=== PATIENT | male | born 1970 | race Caucasian/White ===

== ENCOUNTER 2017-10-26 12:15 | Emergency (ER) | payer BC, OTHER ==
--- NOTE | 2017-10-26 12:40 | PDOC ---
History of Present Illness <John Ulloa - Last Filed: 10/26/17 16:47> - History of Present Illness Initial Comments: 10/26/17 13:07 47-year-old male with a history of hypothyroidism, hyperlipidemia presents after exposure at work. The patient works for the sanitation department, and reports that he was sprayed by an unknown fluid into his eyes and into his mouth when he was behind the sanitation truck. This occurred at 9am. He reports that it smelled like urine and thus he became concerned that he may have been exposed to a disease. He was in his usual state of health, denies fevers, chills , chest pain, shortness of breath, abdominal pain, nausea, vomiting, diarrhea, focal weakness or numbness. He does not recall whether he is vaccinated against hepatitis B. He reports receiving a flu shot recently. He does not recall his last tetanus shot. PMD: Dr. Minaya <Diomedes Escobar - Last Filed: 10/26/17 22:00> - General Chief Complaint: Non EmpBld/Body Flud Exposure Stated Complaint: EXPOSURE TO BODY FLUID Time Seen by Provider: 10/26/17 12:39 Past History <John Ulloa - Last Filed: 10/26/17 16:47> - Past Medical History Anemia: No Asthma: No Cancer: No Cardiac Disorders: No CVA: No COPD: No CHF: No Dementia: No Diabetes: No GI Disorders: No Disorders: Yes (ENLARGED PROSTATE) HTN: No Hypercholesterolemia: Yes Liver Disease: No Seizures: No Thyroid Disease: Yes - Surgical History Abdominal Surgery: Yes (HERNIA SURGERY X2) Appendectomy: Yes Cardiac Surgery: No Cholecystectomy: No Lung Surgery: No Neurologic Surgery: No Orthopedic Surgery: Yes (LEFT KNEE,ANKLE AND SHOULDER SX) - Immunization History Td Vaccination: No - Suicide/Smoking/Psychosocial Hx Smoking Status: No Smoking History: Never smoked Have you smoked in the past 12 months: No Number of Cigarettes Smoked Daily: 60 If you are a former smoker, when did you quit?: 15 YRS AGO Hx Alcohol Use: No Drug/Substance Use Hx: No Substance Use Type: None Hx Substance Use Treatment: No <Diomedes Escobar - Last Filed: 10/26/17 22:00> - Past Medical History Allergies/Adverse Reactions: Allergies Allergy/AdvReac Type Severity Reaction Status Date / Time No Known Drug Allergies Allergy Verified 10/26/17 12:34 Home Medications: Ambulatory Orders Aspirin [ASA -] 81 mg PO DAILY 04/03/12 Levothyroxine [Synthroid -] 25 mcg PO DAILY 04/03/12 Rosuvastatin Calcium [Crestor] 5 mg PO HS 04/03/12 Cyclobenzaprine HCl [Flexeril -] 10 mg PO HS #30 tablet 02/11/16 Ondansetron [Zofran Odt -] 4 mg SL BID PRN #14 od.tablet 10/26/17 Raltegravir [Isentress -] 400 mg PO BID #46 tab 10/26/17 Review of Systems - Review of Systems Comments:: 10/26/17 14:03 GENERAL/CONSTITUTIONAL: No fever or chills. No weakness. HEAD, EYES, EARS, NOSE AND THROAT: No change in vision. No ear pain or discharge. No sore throat. GASTROINTESTINAL: No nausea, vomiting, diarrhea or constipation. GENITOURINARY: No dysuria, frequency, or change in urination. CARDIOVASCULAR: No chest pain or shortness of breath. RESPIRATORY: No cough, wheezing, or hemoptysis. MUSCULOSKELETAL: No joint or muscle swelling or pain. No neck or back pain. SKIN: No rash NEUROLOGIC: No headache, vertigo, loss of consciousness, or change in strength/ sensation. ENDOCRINE: No increased thirst. No abnormal weight change. HEMATOLOGIC/LYMPHATIC: No anemia, easy bleeding, or history of blood clots. ALLERGIC/IMMUNOLOGIC: No hives or skin allergy. <Nassef,Yomna - Last Filed: 10/26/17 22:00> *Physical Exam - Vital Signs Last Vital Signs Temp Pulse Resp BP Pulse Ox 98 F 82 18 120/78 97 10/26/17 12:15 10/26/17 12:15 10/26/17 12:15 10/26/17 12:15 10/26/17 12:15 <John Ulloa - Last Filed: 10/26/17 16:47> - Physical Exam Comments: 10/26/17 14:03 GENERAL: Awake, alert, and fully oriented, in no acute distress HEAD: No signs of trauma EYES: PERRLA, EOMI, sclera anicteric, conjunctiva clear ENT: Auricles normal inspection, hearing grossly normal, nares patent, oropharynx clear without exudates. Moist mucosa NECK: Normal ROM, supple, no lymphadenopathy, JVD, or masses LUNGS: Breath sounds equal, clear to auscultation bilaterally. No wheezes, and no crackles HEART: Regular rate and rhythm, normal S1 and S2, no murmurs, rubs or gallops ABDOMEN: Soft, nontender, normoactive bowel sounds. No guarding, no rebound. No masses EXTREMITIES: Normal range of motion, no edema. No clubbing or cyanosis. No cords, erythema, or tenderness NEUROLOGICAL: Normal speech, cranial nerves intact, negative pronator drift, 5/ 5 strength in all 4 extremities, normal sensation to light touch in all 4 extremities, normal cerebellar exam, normal gait, normal reflexes and tone SKIN: Warm, Dry, normal turgor, no rashes or lesions noted. <Diomedes Escobar - Last Filed: 10/26/17 22:00> ED Treatment Course - LABORATORY CBC & Chemistry Diagram: 10/26/17 13:55 10/26/17 13:55 - ADDITIONAL ORDERS Additional order review: Laboratory Results 10/26/17 13:55 Sodium 134 L Potassium 3.7 Chloride 99 Carbon Dioxide 26 Anion Gap 9 BUN 28 H Creatinine 0.9 Creat Clearance w eGFR > 60 Random Glucose 89 Uric Acid 5.2 Calcium 9.1 Phosphorus 3.4 Total Bilirubin 0.7 GGT 16 AST 27 ALT 31 Alkaline Phosphatase 61 LD Total 140 Total Protein 7.0 Albumin 4.3 Triglycerides 170 H Cholesterol 172 10/26/17 13:55 RBC 5.19 MCV 90.4 MCHC 33.0 RDW 12.1 MPV 8.6 Neutrophils % 71.8 Lymphocytes % 20.6 Monocytes % 5.7 Eosinophils % 1.6 Basophils % 0.3 - Medications Given in the ED: ED Medications Discontinued Medications Generic Name Dose Route Start Last Admin Trade Name Freq PRN Reason Stop Dose Admin Diphtheria/Tetanus/Acell Pertussis 0.5 ml 10/26/17 13:21 10/26/17 13:49 Boostrix - IM 10/26/17 13:22 0.5 ml ONCE ONE Administration Raltegravir 400 mg 10/26/17 13:29 10/26/17 13:55 Isentress - PO 10/26/17 13:30 400 mg ONCE ONE Administration <John Ulloa - Last Filed: 10/26/17 16:47> - LABORATORY CBC & Chemistry Diagram: 10/26/17 13:55 10/26/17 13:55 <Diomedes Escobar - Last Filed: 10/26/17 22:00> Medical Decision Making - Medical Decision Making 10/26/17 16:33 Call to laboratory at 4:32 pm pending laboratory results for HIV and hepatitis panel. Laboratory reports they called the unhairing inspector approx. 10-15 minutes ago and are awaiting his arrival to send out the labs. Second call placed to laboratory at 4:47 pm to check the status of the unhairing inspector' s arrival. Laboratory confirms the unhairing inspector has just arrived for the lab test to be sent out. <John Ulloa - Last Filed: 10/26/17 16:47> - Medical Decision Making 10/26/17 14:03 47-year-old male history of hyperlipidemia, hypothyroidism presents to the emergency department after exposure to an unknown fluid. Vitals are unremarkable. Exam is unremarkable. The patient's hepatitis B vaccine status is unknown (called the pt's PMD Dr. Minaya who does not have the pt's vaccine records). Case discussed with Dr. Chadwick from infectious disease who states that although the patient is low risk, we should offer him HIV prophylaxis with Truvada once a day and Isentress 400 mg twice a day for 28 days. He also recommends that we check a hepatitis panel and see if his hepatitis B surface antibody is positive and if not then we should vaccinate him for hepatitis B. Given that he is low risk, Dr. Chadwick said that we do not need to give him the immunoglobulin. All baseline labs have been ordered, first dose of HIV ppx has been ordred as well.Also updated tdap. 10/26/17 15:44 Labs thus far unremarkable however still pending HIV and hepatitis panel. Called the lab who reported they were still awaiting the unhairing inspector to transport the HIV test to [facility] for testing. Per the lab at [facility], the HIV test will take approximately 30 minutes to run. The lab also reports the hepatitis panel is a send out to [facility] and thus will be unlikely return today. Will consider vaccinating the patient if the HIV test is back and the hepatitis panel remains pending. The patient has been updated. 10/26/17 17:59 HIV test negative. Went to discuss results with patient. Per security, pt walked out of ED 2 mins ago. I called patient, he is on his way back to the ED. 10/26/17 18:25 Pt returned to ED. Discussed results and informed patient that we would have to give him the HB vaccine since we do not know if he is vaccinated. HB vaccine ordered, however not available in [facility] and must be sent up from [facility]. Pharmacist in [facility] sending it up via security now. Pt not willing to stay, states he will return in 1 hour. 10/26/17 18:49 Vaccine has arrived, but pt has not yet returned to ED. Vaccine has been refrigerated. Pt has eloped prior to receiving vaccine and DC paperwork. We attempted to call the patient with no response. I have informed oncoming attending to administer the vaccine to the patient should he return. <Diomedes Escobar - Last Filed: 10/26/17 22:00> *DC/Admit/Observation/Transfer <John Ulloa - Last Filed: 10/26/17 16:47> - Attestations Physician Attestion: 10/26/17 18:03 I, Dr. Diomedes Escobar MD, attest that this document has been prepared under my direction and personally reviewed by me in its entirety. I further attest, that it accurately reflects all work, treatment, procedures and medical decision -making performed by me. <Diomedes Escobar - Last Filed: 10/26/17 22:00> Diagnosis at time of Disposition: Occupational exposure in workplace - Discharge Dispostion Disposition: ELOPED Condition at time of disposition: Stable - Prescriptions Prescriptions: Ondansetron [Zofran Odt -] 4 mg SL BID PRN #14 od.tablet PRN Reason: Nausea Raltegravir [Isentress -] 400 mg PO BID #46 tab - Referrals - Patient Instructions Printed Discharge Instructions: How to Handle Body Fluid Exposure -- Non- Healthcare Worker (At Home, Caregi Additional Instructions: Follow up with your primary care doctor within 1-2 days. Take the prescribed prophylaxis medications for 28 days. You were given the hepatitis B vaccine in the emergency room. At this time, it is unclear if you have been previously vaccinated fro hepatitis B. You may need another dose of this vaccine in a few weeks. Discuss this with your primary care doctor. Return to the emergency department if you have any new, worsening, or concerning symptoms. 10/26/17 1. As discussed, a screening test for the HIV virus was performed today. Your HIV test is Negative (normal). 2. As discussed, if you engaged in high risk-behavior in the three (3) months prior to this test, you could still potentially be at risk and you will need to be re-tested. 3. As discussed, avoid any high risk behavior (such as unprotected sex or needle-sharing) in the future to minimize the chances of breanne HIV. - Post Discharge Activity Forms/Work/School Notes: Back to Work
[2017-10-26 12:45] VITALS: TEMP 98; BMI 29.1
[2017-10-26] MEDS ORDERED: DIPHTH,PERTUSS(ACELL),TET 0.5 ML DISP.SYRIN IM ONE (13:21)
[2017-10-26] MEDS ORDERED: RALTEGRAVIR POTASSIUM 400 MG TAB PO ONE (13:29)
[2017-10-26] MEDS ORDERED: EMTRICITABINE 200MG/TENOFOVIR 300MG PO SCH (13:30)
[2017-10-26] MEDS ORDERED: HIV POST EXPOSURE PROPHYLAXIS KIT PO ONE (13:38)
[2017-10-26 14:32] LABS: BASO % 0.3 % (0-2.0); EOS % 1.6 % (0-4.5); HEMOGLOBIN 15.5 GM/dl (11.7-16.9); LYMPH % 20.6 % (8-40); MCH 29.8 pg (25.7-33.7); MEAN CELL VOLUME 90.4 fl (80-96); MEAN PLT VOLUME 8.6 fl (7.5-11.1); MONO % 5.7 % (3.8-10.2); NEUT % 71.8 % (42.8-82.8); PLATELET COUNT 139 K/MM3 (134-434); RBC 5.19 M/mm3 (4.00-5.60); RDW 12.1 % (11.9-15.9); WHITE BLOOD COUNT 5.7 K/mm3 (4.0-10.8)
[2017-10-26 15:16] LABS: ALBUMIN 4.3 g/dl (3.5-5.0); ALK PHOS 61 U/L (32-92); ANION GAP 9 (8-16); BILIRUBIN,TOTAL 0.7 mg/dl (0.2-1.0); BLOOD UREA NITROGEN 28 mg/dl (7-18); CALCIUM 9.1 mg/dl (8.4-10.2); CHLORIDE 99 mmol/L (98-107); CHOLESTEROL 172 mg/dl; CO2 26 mmol/L (22-28); CREATININE 0.9 mg/dl (0.6-1.3); GAMMA GLUTAMYL TRANSPEPTIDASE 16 U/L (3-64); GLUCOSE,RANDOM 89 mg/dl (74-106); LDH 140 U/L (91-180); PHOSPHOROUS 3.4 mg/dl (2.5-4.6); POTASSIUM 3.7 mmol/L (3.5-5.1); SGOT/AST 27 U/L (10-42); SGPT/ALT 31 U/L (10-40); SODIUM 134 mmol/L (136-145); TRIGLYCERIDES 170 mg/dl (35-160); URIC ACID 5.2 mg/dl (2.6-7.2)
[2017-10-26] MEDS ORDERED: HEPATITIS B VIRUS VACCINE-PF 40 MCG/1 ML VIAL IM ONE (18:03)
[2017-10-26 18:27] VITALS: BP 124/78; PULSE 80
[2017-10-26] MEDS ORDERED: HEPATITIS B VIRUS VACCINE-PF 20 MCG/1ML PRE-FILLED SYRINGE IM ONE (19:00)
[2017-10-27 06:06] LABS: HBsAG SCREEN Negative (Negative); HEPATITIS B CORE ANTIBODY Negative (Negative)
== END 2017-10-26 20:13 | disposition home or self-care (01) ==
LOC: FER 12:15
PROC: 3E0234Z Introduction of Serum, Toxoid and Vaccine into Muscle, Percutaneous Approach (ICD-10-PCS; principal; 2017-10-26)
PROC: 3E033GC Introduction of Other Therapeutic Substance into Peripheral Vein, Percutaneous Approach (ICD-10-PCS; 2017-10-26)
DX: Z77.21 Contact with and (suspected) exposure to potentially hazardous body fluids (principal); X58.XXXA Exposure to other specified factors, initial encounter; Y93.89 Activity, other specified; Y92.410 Unspecified street and highway as the place of occurrence of the external cause; Y99.0 Civilian activity done for income or pay; E78.00 Pure hypercholesterolemia, unspecified; E07.9 Disorder of thyroid, unspecified; Z87.891 Personal history of nicotine dependence
CPT/HCPCS: 36415; 80053; 82465; 82977; 83615; 84100; 84478; 84550; 85025; 86704; 86803; 87340; 87389; 90715; 99282-25

== ENCOUNTER 2018-09-13 13:33 | Emergency (ER) | payer BC ==
[2018-09-13 13:59] VITALS: TEMP 98.4; BMI 27.6
--- NOTE | 2018-09-13 14:13 | PDOC ---
History of Present Illness - General Chief Complaint: Pain Stated Complaint: ABDOMINAL PAIN WITH DARK STOOL 3 DAYS Time Seen by Provider: 09/13/18 14:12 - History of Present Illness Initial Comments: 09/13/18 15:39 Chief complaint: Epigastric pain, bloating, especially at night while lying down to go to sleep. History of present illness: As noted above. Symptoms for approximately 1 week. Noted to begin after taking a prolonged course of Aleve. Also takes one baby aspirin daily for prophylaxis. Pain is improved with food. Worse when recumbent. Review of systems: No fever/chills, nausea, vomiting, diarrhea, chest pain, shortness of breath, lower abdominal pain, back pain, visual or focal neurologic symptoms, unsteadiness of gait, urinary tract symptoms. Remainder systems reviewed and found to be negative Past medical history: Several episodes of diverticulitis which typically involved left lower quadrant pain and resolved with antibiotics. Prior hernia surgery. Colonoscopy 10 years ago with polyps. No history of gastritis, peptic ulcer disease, gastritis or intestinal bleeding Social history: No tobacco or alcohol, no nonprescription drugs. Active and without disability Family history: Reviewed and noncontributory Physical exam: Alert and oriented well-developed well-nourished no acute distress cooperative Afebrile, vital signs normal No pallor or icterus. HEENT clear Neck supple without bruit mass or nodes Chest clear CV regular without murmur rub or gallop Abdomen nondistended. Bowel sounds normal. Soft without mass or organomegaly. Mild tenderness to deep palpation in the epigastrium without guarding or rebound. Casanova's negative. Rectal exam: Soft brown stool. Guaiac negative. Neurological intact Skin clear, no rash, adequate turgor and wet mucous membranes Extremities no CCE Impression: Gastritis, probably secondary to NSAIDs, GERD Plan: Laboratories to assess for possible bleeding, symptomatic treatment, follow-up primary physician and academic support specialist for endoscopy. Past History - Past Medical History Allergies/Adverse Reactions: Allergies Allergy/AdvReac Type Severity Reaction Status Date / Time No Known Drug Allergies Allergy Verified 09/13/18 13:36 Home Medications: Ambulatory Orders Aspirin [ASA -] 81 mg PO DAILY 04/03/12 Levothyroxine [Synthroid -] 225 mcg PO DAILY 04/03/12 Rosuvastatin Calcium [Crestor] 5 mg PO HS 06/25/12 Pantoprazole Sodium [Protonix -] 40 mg PO DAILY #14 tablet.ec 09/13/18 Simethicone/Sod Bicarb/Cit AC [E-Z-Gas II Eff Granules] 1 each PO DAILY PRN #14 gran.ef.pk 09/13/18 Tamsulosin HCl [Flomax] 0.8 mg PO HS 09/13/18 Anemia: No Asthma: No Cancer: No Cardiac Disorders: No CVA: No COPD: No CHF: No Dementia: No Diabetes: No GI Disorders: No Disorders: Yes (ENLARGED PROSTATE) HTN: No Hypercholesterolemia: Yes Liver Disease: No Seizures: No Thyroid Disease: Yes - Surgical History Abdominal Surgery: Yes (HERNIA SURGERY X2) Appendectomy: Yes Cardiac Surgery: No Cholecystectomy: No Lung Surgery: No Neurologic Surgery: No Orthopedic Surgery: Yes (LEFT KNEE,ANKLE AND SHOULDER SX) - Immunization History Td Vaccination: No - Suicide/Smoking/Psychosocial Hx Smoking Status: No Smoking History: Former smoker Have you smoked in the past 12 months: No Number of Cigarettes Smoked Daily: 60 If you are a former smoker, when did you quit?: 20 YEARS Information on smoking cessation initiated: No Hx Alcohol Use: No Drug/Substance Use Hx: No Substance Use Type: None Hx Substance Use Treatment: No *Physical Exam - Vital Signs Last Vital Signs Temp Pulse Resp BP Pulse Ox 98.4 F 75 16 111/75 99 09/13/18 13:36 09/13/18 13:36 09/13/18 13:36 09/13/18 13:36 09/13/18 13:36 Moderate Sedation - Procedure Monitoring Vital Signs: Procedure Monitoring Vital Signs Temperature 98.4 F 09/13/18 13:36 Pulse Rate 75 09/13/18 13:36 Respiratory Rate 16 09/13/18 13:36 Blood Pressure 111/75 09/13/18 13:36 O2 Sat by Pulse Oximetry (%) 99 09/13/18 13:36 ED Treatment Course - LABORATORY CBC & Chemistry Diagram: 09/13/18 14:32 09/13/18 14:32 Medical Decision Making - Medical Decision Making 09/13/18 15:44 Stool guaiac is negative CBC and chemistries are normal. Patient much improved after the administration of Protonix. Pain is resolved and there is no further tenderness to palpation of the abdomen. Discharged on PPI, Cytomel to come, and recommended GI follow-up to consider endoscopy. Return to ER if symptoms worsen. No evidence of recurrent diverticulitis. *DC/Admit/Observation/Transfer Diagnosis at time of Disposition: GERD (gastroesophageal reflux disease) Qualifiers: Esophagitis presence: esophagitis presence not specified Qualified Code(s): K21.9 - Gastro-esophageal reflux disease without esophagitis - Discharge Dispostion Disposition: HOME Condition at time of disposition: Stable Decision to Admit order: No - Prescriptions Prescriptions: Pantoprazole Sodium [Protonix -] 40 mg PO DAILY #14 tablet.ec Simethicone/Sod Bicarb/Cit AC [E-Z-Gas II Eff Granules] 1 each PO DAILY PRN #14 gran.ef.pk PRN Reason: gas, bloating - Referrals Referrals: Allyn Minaya MD [Primary Care Provider] - 1 week - Patient Instructions Printed Discharge Instructions: DI for Gastroesophageal Reflux Disease (GERD) Additional Instructions: Do not eat for several hours before going to bed Discontinue use of nonsteroidal anti-inflammatory agents such as ibuprofen, naproxen, Motrin, Advil, or Aleve. Elevate the head of the bed by placing a brick under each leg at the top of the bed. Medication as directed daily, once in the morning. If symptoms persist see academic support specialist for further evaluation and treatment which were probably entail upper endoscopy. Discussed this with and he'll be - Post Discharge Activity Forms/Work/School Notes: Back to Work
[2018-09-13] MEDS ORDERED: PANTOPRAZOLE SODIUM 40 MG in SODIUM CHLORIDE 100 ML IVPB ONE (14:39)
[2018-09-13 14:53] LABS: BASO % 0.3 % (0-2.0); EOS % 1.5 % (0-4.5); HEMATOCRIT 42.2 % (35.4-49); HEMOGLOBIN 14.2 GM/dl (11.7-16.9); LYMPH % 23.1 % (8-40); MCH 30.5 pg (25.7-33.7); MCHC 33.6 g/dl (32.0-35.9); MEAN CELL VOLUME 90.8 fl (80-96); MEAN PLT VOLUME 8.2 fl (7.5-11.1); NEUT % 68.1 % (42.8-82.8); PLATELET COUNT 135 K/MM3 (134-434); RBC 4.65 M/mm3 (4.00-5.60); RDW 11.6 % (11.9-15.9); WHITE BLOOD COUNT 5.1 K/mm3 (4.0-10.8)
[2018-09-13 14:54] LABS: INR 1.27 (0.82-1.09); PROTHROMBIN TIME (PATIENT) 14.2 SEC (10.2-13.0)
[2018-09-13 14:59] LABS: ALBUMIN 3.7 g/dl (3.5-5.0); ALK PHOS 50 U/L (32-92); ANION GAP 6 MMOL/L (8-16); BILIRUBIN,TOTAL 0.5 mg/dl (0.2-1.0); BLOOD UREA NITROGEN 24 mg/dl (7-18); CALCIUM 8.8 mg/dl (8.4-10.2); CHLORIDE 101 mmol/L (98-107); CO2 25 mmol/L (22-28); CREATININE 0.9 mg/dl (0.6-1.3); GLUCOSE,RANDOM 107 mg/dl (74-106); POTASSIUM 4.1 mmol/L (3.5-5.1); SGOT/AST 30 U/L (10-42); SGPT/ALT 35 U/L (10-40); SODIUM 132 mmol/L (136-145); TOT PROT 6.5 g/dl (6.4-8.3)
[2018-09-13] MEDS ORDERED: PANTOPRAZOLE SODIUM 40 MG VIAL ONE (15:03)
[2018-09-13 15:39] VITALS: BP 121/77; PULSE 67
== END 2018-09-13 15:39 | disposition home or self-care (01) ==
LOC: FER 13:33
PROC: 3E033GC Introduction of Other Therapeutic Substance into Peripheral Vein, Percutaneous Approach (ICD-10-PCS; principal; 2018-09-13)
DX: K21.9 Gastro-esophageal reflux disease without esophagitis (principal)
CPT/HCPCS: 36415; 80053; 82272; 85025; 85610; 99282-25

== ENCOUNTER → 2018-09-13 | Emergency (ER) | payer BC, OTHER ==
[2018-09-13 12:19] VITALS: BP 115/74; PULSE 91; TEMP 98.5; BMI 29.1
--- NOTE | 2018-09-13 13:57 | PDOC ---
History of Present Illness <Joe Villa - Last Filed: 09/13/18 14:09> <Gloria Villarreal - Last Filed: 09/13/18 14:36> - General Chief Complaint: Pain Stated Complaint: PCP SENT/ULCER Time Seen by Provider: 09/13/18 13:29 Past History - Past Medical History Anemia: No Asthma: No Cancer: No Cardiac Disorders: No CVA: No COPD: No CHF: No Dementia: No Diabetes: No GI Disorders: No Disorders: Yes (ENLARGED PROSTATE) HTN: No Hypercholesterolemia: Yes Liver Disease: No Seizures: No Thyroid Disease: Yes - Surgical History Abdominal Surgery: Yes (HERNIA SURGERY X2) Appendectomy: Yes Cardiac Surgery: No Cholecystectomy: No Lung Surgery: No Neurologic Surgery: No Orthopedic Surgery: Yes (LEFT KNEE,ANKLE AND SHOULDER SX) - Immunization History Td Vaccination: No - Suicide/Smoking/Psychosocial Hx Smoking Status: No Smoking History: Never smoked Have you smoked in the past 12 months: No Number of Cigarettes Smoked Daily: 60 If you are a former smoker, when did you quit?: 15 YRS AGO Information on smoking cessation initiated: No Hx Alcohol Use: No Drug/Substance Use Hx: No Substance Use Type: None Hx Substance Use Treatment: No <Joe Villa - Last Filed: 09/13/18 14:09> <Gloria Villarreal - Last Filed: 09/13/18 14:36> - Past Medical History Allergies/Adverse Reactions: Allergies Allergy/AdvReac Type Severity Reaction Status Date / Time No Known Drug Allergies Allergy Verified 09/13/18 13:36 Home Medications: Ambulatory Orders Aspirin [ASA -] 81 mg PO DAILY 04/03/12 Levothyroxine [Synthroid -] 225 mcg PO DAILY 04/03/12 Rosuvastatin Calcium [Crestor] 5 mg PO HS 04/03/12 Tamsulosin HCl [Flomax] 0.8 mg PO HS 09/13/18 *Physical Exam - Vital Signs Last Vital Signs Temp Pulse Resp BP Pulse Ox 98.5 F 91 H 16 115/74 100 09/13/18 12:15 09/13/18 12:15 09/13/18 12:15 09/13/18 12:15 09/13/18 12:15 <Joe Villa - Last Filed: 09/13/18 14:09> - Vital Signs Last Vital Signs Temp Pulse Resp BP Pulse Ox 98.5 F 91 H 16 115/74 100 09/13/18 12:15 09/13/18 12:15 09/13/18 12:15 09/13/18 12:15 09/13/18 12:15 <Gloria Villarreal - Last Filed: 09/13/18 14:36> Moderate Sedation - Procedure Monitoring Vital Signs: Procedure Monitoring Vital Signs Temperature 98.5 F 09/13/18 12:15 Pulse Rate 91 H 09/13/18 12:15 Respiratory Rate 16 09/13/18 12:15 Blood Pressure 115/74 09/13/18 12:15 O2 Sat by Pulse Oximetry (%) 100 09/13/18 12:15 <Joe Villa - Last Filed: 09/13/18 14:09> - Procedure Monitoring Vital Signs: Procedure Monitoring Vital Signs Temperature 98.5 F 09/13/18 12:15 Pulse Rate 91 H 09/13/18 12:15 Respiratory Rate 16 09/13/18 12:15 Blood Pressure 115/74 09/13/18 12:15 O2 Sat by Pulse Oximetry (%) 100 09/13/18 12:15 <Gloria Villarreal - Last Filed: 09/13/18 14:36> Medical Decision Making - Medical Decision Making The patient was in [facility]. Patient called three times. Patient not found. Patient left before medical evaluation 09/13/18 14:08 <Joe Villa - Last Filed: 09/13/18 14:09> - Medical Decision Making pt left without being seen or evaluated by resident or MD attending from the vertical session. unable to locate in the department. LWBS 09/13/18 14:32 <Gloria Villarreal - Last Filed: 09/13/18 14:36> *DC/Admit/Observation/Transfer <Joe Villa - Last Filed: 09/13/18 14:09> <Gloria Villarreal - Last Filed: 09/13/18 14:36> Diagnosis at time of Disposition: Patient left before evaluation by physician - Discharge Dispostion Disposition: LEFT BEFORE MED EVAL, ROB RM - Referrals Referrals: Allyn Minaya MD [Primary Care Provider] - - Patient Instructions - Post Discharge Activity
== END | disposition left against medical advice (07) ==
LOC: JER 12:01
DX: Z53.21 Procedure and treatment not carried out due to patient leaving prior to being seen by health care provider (principal)
CPT/HCPCS: 99281-25

== ENCOUNTER 2018-10-18 12:13 | Emergency (ER) | payer BC ==
[2018-10-18 12:21] VITALS: BMI 28.2
[2018-10-18 12:24] VITALS: BP 116/76; PULSE 77; TEMP 98.4
--- NOTE | 2018-10-18 13:26 | PDOC ---
History of Present Illness - General Chief Complaint: Pain, Acute Stated Complaint: ABD PAIN Time Seen by Provider: 10/18/18 12:57 History Source: Patient (Patient walked in the ED with a complaint of abdominal pain for possibly a month, seen by GI MD, scheduled for upper endoscopy, treated for potential PUD ) Exam Limitations: No Limitations - History of Present Illness Timing/Duration: unsure Severity: mild, moderate Associated Symptoms: denies: denies symptoms, chest pain, cough, diaphoresis, fever/chills, headaches, loss of appetite, malaise, nausea/vomiting, rash, seizure, shortness of breath, syncope, weakness, other Past History - Travel Traveled outside of the country in the last 30 days: No Close contact w/someone who was outside of country & ill: No - Past Medical History Allergies/Adverse Reactions: Allergies Allergy/AdvReac Type Severity Reaction Status Date / Time No Known Drug Allergies Allergy Verified 10/18/18 12:14 Home Medications: Ambulatory Orders Aspirin [ASA -] 81 mg PO DAILY 04/03/12 Levothyroxine [Synthroid -] 225 mcg PO DAILY 04/03/12 Rosuvastatin Calcium [Crestor] 5 mg PO HS 04/03/12 Pantoprazole Sodium [Protonix -] 40 mg PO DAILY #14 tablet.ec 09/13/18 Simethicone/Sod Bicarb/Cit AC [E-Z-Gas II Eff Granules] 1 each PO DAILY PRN #14 gran.ef.pk 09/13/18 Tamsulosin HCl [Flomax] 0.8 mg PO HS 09/13/18 Anemia: No Asthma: No Cancer: No Cardiac Disorders: No CVA: No COPD: No CHF: No Dementia: No Diabetes: No GI Disorders: Yes (Diverticultis) Disorders: Yes (ENLARGED PROSTATE) HTN: No Hypercholesterolemia: Yes Liver Disease: No Seizures: No Thyroid Disease: Yes - Surgical History Abdominal Surgery: Yes (HERNIA SURGERY X2) Appendectomy: Yes Cardiac Surgery: No Cholecystectomy: No Lung Surgery: No Neurologic Surgery: No Orthopedic Surgery: Yes (LEFT KNEE,ANKLE AND SHOULDER SX) - Immunization History Td Vaccination: No - Suicide/Smoking/Psychosocial Hx Smoking Status: No Smoking History: Never smoked Have you smoked in the past 12 months: No Number of Cigarettes Smoked Daily: 60 If you are a former smoker, when did you quit?: 20 YEARS Hx Alcohol Use: No Drug/Substance Use Hx: No Substance Use Type: None Hx Substance Use Treatment: No Review of Systems - Review of Systems Able to Perform ROS?: Yes Is the patient limited Citizen [place] proficient: Yes Constitutional: Yes: Malaise HEENTM: No: Symptoms Reported, See HPI, Eye Pain, Blurred Vision, Tearing, Recent change in vision, Double Vision, Cataracts, Ear Pain, Ocular Prothesis, Ear Discharge, Nose Pain, Nose Congestion, Tinnitus, Nose Bleeding, Hearing Loss , Throat Pain, Throat Swelling, Mouth Pain, Dental Problems, Difficulty Swallowing, Mouth Swelling, Other Respiratory: No: Symptoms reported, See HPI, Cough, Orthopnea, Shortness of Breath, SOB with Exertion, SOB at Rest, Stridor, Wheezing, Productive cough, Hemoptysis, Other Cardiac (ROS): No: Symptoms Reported, See HPI, Chest Pain, Edema, Irregular Heart Rate, Lightheadedness, Palpitations, Syncope, Chest Tightness, Other ABD/GI: Yes: Symptoms Reported, See HPI : No: Symptoms Reported, See HPI, Burning, Dysuria, Discharge, Frequency, Flank Pain, Hematuria, Incontinence, Pain, Urgency, Testicular Mass, Testicular Swelling, Lesions, Testicular Pain, Other Musculoskeletal: No: Symptoms Reported, See HPI, Back Pain, Gout, Joint Pain, Joint Swelling, Muscle Pain, Muscle Weakness, Neck Pain, Joint Stiffness, Other Integumentary: No: Symptoms Reported, See HPI, Bruising, Change in Color, Change in Hair/Nails, Dryness, Erythema, Flushing, Lesions, Lumps, Pallor, Pruritus, Rash, Sweating, Other Neurological: No: Symptoms reported, See HPI, Headache, Numbness, Paresthesia, Pre-Existing Deficit, Seizure, Tingling, Tremors, Weakness, Unsteady Gait, Ataxia, Dizziness, Other Psychiatric: Yes: Anxiety Endocrine: No: Symptoms Reported, See HPI, Excessive Sweating, Flushing, Intolerance to Cold, Intolerance to Heat, Increased Hunger, Increased Thirst, Increased Urine, Unexplained Weight Gain, Unexplained Weight Loss, Change in Weight, Other All Other Systems: Reviewed and Negative *Physical Exam - Vital Signs Last Vital Signs Temp Pulse Resp BP Pulse Ox 98.4 F 77 18 116/76 100 10/18/18 12:14 10/18/18 12:14 10/18/18 12:14 10/18/18 12:14 10/18/18 12:14 - Physical Exam General Appearance: Yes: Nourished, Appropriately Dressed, Mild Distress HEENT: positive: ANGELA Neck: positive: Supple Respiratory/Chest: positive: Lungs Clear Cardiovascular: positive: Regular Rate Gastrointestinal/Abdominal: positive: Normal Bowel Sounds, Tender (Mildly diffuse tenderness throughout the abdomen) Male Genitalia: positive: normal genitalia Extremity: positive: Normal Capillary Refill Integumentary: positive: Normal Color Neurologic: positive: principal software engineer II-XII NML intact, Fully Oriented, Alert (anxious) Moderate Sedation - Procedure Monitoring Vital Signs: Procedure Monitoring Vital Signs Temperature 98.4 F 10/18/18 12:14 Pulse Rate 77 10/18/18 12:14 Respiratory Rate 18 10/18/18 12:14 Blood Pressure 116/76 10/18/18 12:14 O2 Sat by Pulse Oximetry (%) 100 10/18/18 12:14 ED Treatment Course - LABORATORY CBC & Chemistry Diagram: 10/18/18 13:36 10/18/18 13:36 *DC/Admit/Observation/Transfer Diagnosis at time of Disposition: Abdominal pain Qualifiers: Abdominal location: unspecified location Qualified Code(s): R10.9 - Unspecified abdominal pain - Discharge Dispostion Disposition: HOME Condition at time of disposition: Stable Decision to Admit order: No - Referrals - Patient Instructions Printed Discharge Instructions: DI for Abdominal Pain-Adult Additional Instructions: Follow up with your sap senior developer as scheduled. Continue medications as prescribed Forward the lab and CT reports to your doctor - Post Discharge Activity
[2018-10-18 14:02] LABS: ALBUMIN 4.1 g/dl (3.5-5.0); ALK PHOS 60 U/L (32-92); ANION GAP 5 MMOL/L (8-16); BILIRUBIN,TOTAL 0.4 mg/dl (0.2-1.0); BLOOD UREA NITROGEN 24 mg/dl (7-18); CALCIUM 8.8 mg/dl (8.4-10.2); CHLORIDE 103 mmol/L (98-107); CO2 29 mmol/L (22-28); GLUCOSE,RANDOM 109 mg/dl (74-106); POTASSIUM 4.6 mmol/L (3.5-5.1); SGOT/AST 31 U/L (10-42); SGPT/ALT 40 U/L (10-40); SODIUM 137 mmol/L (136-145)
[2018-10-18 14:04] LABS: BASO % 0.2 % (0-2.0); EOS % 3.4 % (0-4.5); HEMOGLOBIN 15.3 GM/dl (11.7-16.9); LYMPH % 23.5 % (8-40); MCHC 33.2 g/dl (32.0-35.9); MEAN CELL VOLUME 90.3 fl (80-96); MEAN PLT VOLUME 7.6 fl (7.5-11.1); MONO % 7.1 % (3.8-10.2); NEUT % 65.8 % (42.8-82.8); PLATELET COUNT 157 K/MM3 (134-434); RBC 5.09 M/mm3 (4.00-5.60); RDW 11.5 % (11.9-15.9); WHITE BLOOD COUNT 4.8 K/mm3 (4.0-10.8)
[2018-10-18] MEDS ORDERED: SODIUM CHLORIDE 1,000 ML IV STA ×2 (15:28→16:18)
== END 2018-10-18 17:57 | disposition home or self-care (01) ==
LOC: FER 12:13
PROC: 3E0337Z Introduction of Electrolytic and Water Balance Substance into Peripheral Vein, Percutaneous Approach (ICD-10-PCS; principal; 2018-10-18)
DX: R10.9 Unspecified abdominal pain (principal); E78.00 Pure hypercholesterolemia, unspecified; N40.0 Benign prostatic hyperplasia without lower urinary tract symptoms
CPT/HCPCS: 36415; 74177-TC; 80053; 85025; 99283-25; J7030

== ENCOUNTER 2019-09-28 09:56 | Day surgery (SDC) | payer OTHER ==
[2019-09-27 15:19] VITALS: BMI 27.1
[2019-09-28] MEDS ORDERED: LIDOCAINE HCL 1%, 10 MG/ML (20ML VIAL) ONE (10:12)
[2019-09-28] MEDS ORDERED: BUPIVACAINE HCL/PF 0.5% (5 MG/ML) 30 ML VIAL IJ ONE ×2 (10:13→11:09)
--- NOTE | 2019-09-28 10:51 | HP ---
Admitting History and Physical - Admission Chief Complaint: Left Hip Pain History Source: Patient - Past Medical History Gastrointestinal: Yes: Diverticulitis, Diverticulosis, Other (anal fistula with repair, s/p colonscopy with polpys removed) Renal/: Yes: BPH Endocrine: Yes: Hypothyroidism - Past Surgical History Past Surgical History: Yes: Appendectomy, Arthrosocopy (left knee meniscus), Hernia Repair (herniar repiar as child and as adult), Vein Stripping/Ligation ( bilateral) - Smoking History Smoking history: Never smoked Have you smoked in the past 12 months: No Aproximately how many cigarettes per day: 60 If you are a former smoker, when did you quit?: 20 YEARS - Alcohol/Substance Use Hx Alcohol Use: No Home Medications - Allergies Allergies/Adverse Reactions: Allergies Allergy/AdvReac Type Severity Reaction Status Date / Time No Known Drug Allergies Allergy Verified 09/28/19 10:19 - Home Medications Home Medications: Ambulatory Orders Aspirin [ASA -] 81 mg PO DAILY 04/03/12 Levothyroxine [Synthroid -] 225 mcg PO DAILY 04/03/12 Rosuvastatin Calcium [Crestor] 5 mg PO HS 04/03/12 Tamsulosin HCl [Flomax] 0.8 mg PO HS 09/13/18 Amino Acids [Amino Acid] 1 each PO DAILY 09/27/19 Ascorbic Acid [Vitamin C] 1,000 mg PO DAILY 09/27/19 Cholecalciferol (Vitamin D3) [Vitamin D3 -] 400 unit PO DAILY 09/27/19 Glucosamine/Methylsulfonylmeth [MSM-Glucosamine 250-250 mg Cap] 1 each PO DAILY 09/27/19 Magnesium Amino Acid Chelate [Magnesium] 100 mg PO DAILY 09/27/19 [place]-3 Fatty Acids/Fish Oil [Fish Oil 1,000 mg Capsule] 1 each PO DAILY Turmeric Root Extract [Turmeric] 500 mg PO DAILY 09/27/19 Ubidecarenone [Co Q-10] 10 mg PO DAILY 09/27/19 Physical Examination Vital Signs: Vital Signs Temperature 97.8 F 09/28/19 10:16 Pulse Rate 89 09/28/19 10:16 Respiratory Rate 16 09/28/19 10:16 Blood Pressure 117/72 09/28/19 10:16 O2 Sat by Pulse Oximetry (%) 100 09/28/19 10:16 Findings/Remarks: Hip Pain GIANFRANCO FADIR positive Left Constitutional: Yes: Well Nourished Eyes: Yes: WNL HENT: Yes: WNL Neck: Yes: WNL Cardiovascular: Yes: WNL Respiratory: Yes: WNL Assessment/Plan Pt with Left Hip pain secodnary OA/ Labral Tear. 1. Pt will receive Left IA hip Steroid injection under ultrasound guidance.
[2019-09-28] MEDS ORDERED: MIDAZOLAM HCL 2 MG/2 ML SINGLE DOSE VIAL ONE ×2 (10:57→11:02)
[2019-09-28] MEDS ORDERED: LIDOCAINE HCL 1%, 10 MG/ML (50 mL VIAL) IJ ONE (11:09)
[2019-09-28] MEDS ORDERED: IOHEXOL 180 MG/1 ML ML IJ ONE (11:09)
[2019-09-28] MEDS ORDERED: TRIAMCINOLONE ACET 40MG/1ML VIAL IM ONE (11:09)
[2019-09-28 11:37] VITALS: TEMP 97.3
[2019-09-28 12:28] VITALS: BP 111/55; PULSE 74
[2019-09-28] MEDS ORDERED: oxyCODONE HCL 5 MG TABLET PO PRN (13:42)
[2019-09-28] MEDS ORDERED: ONDANSETRON 4 MG/2 ML VIAL IVPUSH PRN (13:42)
[2019-09-28] MEDS ORDERED: LACTATED RINGERS SOLUTION 1,000 ML IV SCH (13:45)
--- NOTE | 2019-10-04 10:48 | PROC ---
Procedure Note Procedure: Preoperative Diagnosis: Hip Pain/ OA/ DJD Postoperative Diagnosis: Same Procedure Performed: Left intra-articular hip injection under fluoroscopic guidance Anesthesia: MAC Procedure: After the risks and benefits were explained, informed consent was obtained. The patient was then taken to the procedure room and positioned supine on the procedure table. Time out was performed. The region overlying the left hip joint was identified using fluoroscopy. The skin was prepped and draped in the usual sterile fashion. The skin and soft tissues were anesthetized using 1% lidocaine. Using fluoroscopic guidance, a 22 gauge 3.5 inch spinal needle was then introduced to the hip joint at the center of the junction of the femoral neck. Omnipaque 180 confirmed appropriate needle placement. At mixture of 7 cc .5% bupivacaine and 1 cc Kenalog was then injected. The patient tolerated the procedure well and there were no complications. The patient was taken to the post procedure recovery area in good condition. Vital signs remained stable before, during, and after the procedure. The patient was given oral and written follow-up instructions. The patient was given a follow up appointment with me in the near future. Liang Mckinney DO ^
== END 2019-09-28 12:29 | disposition home or self-care (01) ==
LOC: JASU-SURG 09:56
PROVIDERS: ATTEND Pain Medicine Pain Medicine
PROC: 3E0U3BZ Introduction of Anesthetic Agent into Joints, Percutaneous Approach (ICD-10-PCS; 2019-09-28)
PROC: 3E0U33Z Introduction of Anti-inflammatory into Joints, Percutaneous Approach (ICD-10-PCS; principal; 2019-09-28 11:30)
DX: M16.12 Unilateral primary osteoarthritis, left hip (principal); M25.552 Pain in left hip
CPT/HCPCS: 76000-TC-FY

== ENCOUNTER 2022-05-31 04:21 | Day surgery (SDC) | payer BC ==
[2022-05-26 12:01] VITALS: BMI 25.7
[2022-05-31 10:14] VITALS: RESP 20
[2022-05-31] MEDS ORDERED: MIDAZOLAM HCL 2 MG/2 ML SINGLE DOSE VIAL ONE (10:37)
[2022-05-31] MEDS ORDERED: PROPOFOL 20 ML ONE ×2 (10:40→12:29)
[2022-05-31 13:07] VITALS: TEMP 97.8
[2022-05-31 13:23] VITALS: BP 132/84; PULSE 58
== END 2022-05-31 13:45 | disposition home or self-care (01) ==
LOC: JASU-SURG 04:21
PROVIDERS: ATTEND Urology
PROC: 0TF3XZZ Fragmentation in Right Kidney Pelvis, External Approach (ICD-10-PCS; principal; 2022-05-31 12:20)
DX: N20.0 Calculus of kidney (principal)